=== PATIENT | male | born 1985 | race Caucasian/White ===

== ENCOUNTER 2019-07-16 07:27 | Emergency (ER) | payer OTHER ==
[2019-07-16 07:31] VITALS: BP 142/84; PULSE 87; RESP 18; TEMP 97.8
[2019-07-16] MEDS ORDERED: IBUPROFEN 600 MG STARTER PACK 4 TAB BTL PO STA (07:57)
[2019-07-16] MEDS ORDERED: ACET/COD 300 MG/30 MG STARTER PACK 6 TAB BTL PO STA (07:57)
--- NOTE | 2019-07-16 08:07 | ED ---
Extremity Problem HPI - General Chief complaint: Extremity Problem,Nontraumatic Stated complaint: Hand Pain Time Seen by Provider: 07/16/19 07:36 Source: patient, RN notes reviewed, old records reviewed Mode of arrival: ambulatory Limitations: no limitations - History of Present Illness Initial comments: Patient is a 33-year-old male presents emergency room today waking up with significant pain and swelling involving the second distal metacarpal is right- handed. 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 He states he believes he has some evidence of trigger finger. He reports the lip up today with worsening pain swelling and irritation. Patient states that he has normal sensation of the finger. - Related Data Allergies Allergy/AdvReac Type Severity Reaction Status Date / Time No Known Allergies Allergy Verified 07/16/19 07:31 Review of Systems ROS Statement: Those systems with pertinent positive or pertinent negative responses have been documented in the HPI. ROS Other: All systems not noted in ROS Statement are negative. Past Medical History Past Medical History: No Reported History History of Any Multi-Drug Resistant Organisms: None Reported Past Surgical History: No Surgical Hx Reported Past Psychological History: No Psychological Hx Reported Smoking Status: Current every day smoker Past Alcohol Use History: None Reported Past Drug Use History: Marijuana General Exam - General Exam Comments Initial Comments: Pleasant 33-year-old male. No distress. Limitations: no limitations General appearance: alert, in no apparent distress Head exam: Present: atraumatic, normocephalic, normal inspection Eye exam: Present: normal appearance, PERRL, EOMI. Absent: scleral icterus, conjunctival injection, periorbital swelling ENT exam: Present: normal exam, mucous membranes moist Neck exam: Present: normal inspection. Absent: tenderness, meningismus, lymphadenopathy Respiratory exam: Present: normal lung sounds bilaterally. Absent: respiratory distress, wheezes, rales, rhonchi, stridor Cardiovascular Exam: Present: regular rate, normal rhythm, normal heart sounds. Absent: systolic murmur, diastolic murmur, rubs, gallop, clicks GI/Abdominal exam: Present: soft, normal bowel sounds. Absent: distended, tenderness, guarding, rebound, rigid Extremities exam: Present: normal inspection, full ROM, normal capillary refill. Absent: tenderness, pedal edema, joint swelling, calf tenderness Right Elbow exam: Present: normal inspection, full ROM Forearm Wrist exam: Present: normal inspection, full ROM Hand Wrist exam: Present: full ROM, tenderness (Patient has tenderness and swelling over distal first MCP, no breaks in skin, no erythema. Pain with ROM ), swelling. Absent: normal inspection Neuro motor exam: Present: wrist extension intact, thumb opposition intact, thumb IP flexion intact, thumb adduction intact, fingers 2-5 abduction intact Neurosensory exam: Present: 2-point discrimination Vascular: Present: normal capillary refill Back exam: Present: normal inspection Neurological exam: Present: alert, oriented X3, CN II-XII intact Psychiatric exam: Present: normal affect, normal mood Skin exam: Present: warm, dry, intact, normal color. Absent: rash Course Vital Signs 07/16/19 07:29 Temperature 97.8 F Pulse Rate 87 Respiratory 18 Rate Blood Pressure 142/84 O2 Sat by Pulse 98 Oximetry Procedures - Orthopedic Splinting/Casting Injury #1 Side: right Upper Extremity Injury Location: hand, finger Upper Extremity Immobilizer: volar splint, Navdeep wrap, synthetic pre-padded splint Medical Decision Making - Medical Decision Making 33-year-old male presents emergency from today for evaluation for pain over his right second PIP joint. Patient reported worsening pain or the past 24 hours. 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 Patient is sometimes he will develop a trigger finger in a lockup. At this time he has normal sensation distally. Does have some pain with flexion of the first digit. Patient hematuria to be negative for any acute process. Due to the joint inflammation Patient was placed in a volar splint to prevent any range of motion at the PIP. I discussed the Patient follow up with orthosis. I discussed using anti-inflamm atory medications reports the pain medicine. STRAIN CERTAIN RETURN PARAMETERS WERE DISCUSSED. - Radiology Data Radiology results: report reviewed Patient has normal hand xray. Disposition Clinical Impression: Tendinitis of finger of right hand, Trigger finger Disposition: HOME SELF-CARE Condition: Good Instructions (If sedation given, give patient instructions): Trigger Finger (ED) Additional Instructions: Patient advised to follow up with orthopedic and to return to ED if any alarming signs or symptoms occur. Take ibuprofen and return to ED if any alarming signs or symptoms occur. Remain in splint. Is patient prescribed a controlled substance at d/c from ED?: No Referrals: None,Stated [REFERRING] - 1-2 days Manjit Mcgregor DO [Medical Doctor] - 1-2 days Time of Disposition: 08:24
--- NOTE | 2019-07-16 08:26 | XR ---
EXAMINATION TYPE: XR hand complete RT DATE OF EXAM: 07/16/2019 CLINICAL HISTORY: pain TECHNIQUE: Frontal, lateral and oblique images of the right hand are obtained. COMPARISON: None. FINDINGS: There is no acute fracture/dislocation evident. The joint spaces appear within normal limi ts. The overlying soft tissue appears unremarkable. IMPRESSION: There is no acute fracture or dislocation ICD 10 NO FRACTURE, INITIAL EVALUATION
== END 2019-07-16 08:45 | disposition home or self-care (01) ==
LOC: EC 07:27
DX: M65.321 Trigger finger, right index finger (principal); M77.9 Enthesopathy, unspecified; F17.200 Nicotine dependence, unspecified, uncomplicated
CPT/HCPCS: 29125; 99284